=== PATIENT | male | born 1980 | race Caucasian/White ===

== ENCOUNTER 2018-05-09 16:43 | Emergency (ER) | payer MEDICAID ==
--- NOTE | 2018-05-09 17:38 | ED ---
Shortness of Breath - HPI Summary HPI Summary: This patient is a 38 year old M presenting to [facility] with a chief complaint of SOB since this AM. He endorses he was recently dxd with a heart murmur, and that his SOB is more than baseline. He also endorses fatigue and lethargy; he fell asleep while on a bench right after sitting down. In addition, pt endorses left foot edema. - History of Current Complaint Chief Complaint: EDShortnessOfBreath Time Seen by Provider: 05/09/18 16:49 Hx Obtained From: Patient Onset/Duration: Sudden Onset, Lasting Hours, Still Present Timing: Constant Current Severity: Moderate Dyspnea At: Rest Aggrevating Factors: Nothing Alleviating Factors: Nothing Associated Signs & Symptoms: Edema Related History: Obesity - Allergy/Home Medications Allergies/Adverse Reactions: Allergies Allergy/AdvReac Type Severity Reaction Status Date / Time No Known Allergies Allergy Verified 05/09/18 16:55 Home Medications: Home Medications NK [No Home Medications Reported] 05/09/18 [History Confirmed 05/09/18] PMH/Surg Hx/FS Hx/Imm Hx Endocrine/Hematology History: Denies: Hx Sickle Cell Disease Cardiovascular History: Denies: Hx Pacemaker/ICD Respiratory History: Denies: Hx Lung Cancer GI History: Denies: Hx Ileostomy History: Denies: Hx Dialysis Sensory History: Reports: Hx Contacts or Glasses Denies: Hx Legally Blind, Hx Deafness Opthamlomology History: Reports: Hx Contacts or Glasses Denies: Hx Legally Blind EENT History: Denies: Hx Deafness Neurological History: Denies: Hx Dementia Psychiatric History: Denies: Hx Autism, Hx Schizophrenia Infectious Disease History: No Infectious Disease History: Denies: Traveled Outside the [place] in Last 30 Days - Family History Known Family History: Negative: Blood Disorder - Social History Occupation: Unemployed Lives: Alone - homeless Alcohol Use: Rare Substance Use Type: Reports: None Smoking Status (MU): Never Smoked Tobacco Review of Systems Positive: Fatigue, Other - lethargy. Negative: Fever Positive: Shortness Of Breath Positive: no symptoms reported Positive: Edema Positive: Rash - bilateral flanks All Other Systems Reviewed And Are Negative: Yes Physical Exam - Summary Physical Exam Summary: Appearance: The patient is well-nourished in no acute distress and in no acute pain. Skin: The skin is warm and dry and skin color reflects adequate perfusion. Chronic bilateral flank skin discoloration. HEENT: The head is normocephalic and atraumatic. The pupils are equal and reactive. The conjunctivae are clear and without drainage. Nares are patent and without drainage. Mouth reveals moist mucous membranes and the throat is without erythema and exudate. The external ears are intact. The ear canals are patent and without drainage. The tympanic membranes are intact. Neck: The neck is supple with full range of motion and non-tender. There are no carotid bruits. There is no neck vein distension. Respiratory: Chest is non-tender. Lungs are clear to auscultation and breath sounds are symmetrical and equal. Cardiovascular: Heart is regular rate and rhythm. There is no rub auscultated. There is a soft systolic ejection murmur auscultated. There is mild bilateral peripheral edema, left worse than right, and pulses are symmetrical and equal. Abdomen: The abdomen is soft and non-tender. There are normal bowel sounds heard in all four quadrants and there is no organomegaly palpated. Musculoskeletal: There is no back tenderness noted. Extremities are non-tender with full range of motion. There is good capillary refill. There is mild bilateral peripheral edema, left worse than right, or calf tenderness elicited. Neurological: Patient is alert and oriented to person, place and time. The patient has symmetrical motor strength in all four extremities. Cranial nerves are grossly intact. Deep tendon reflexes are symmetrical and equal in all four extremities. Psychiatric: The patient has an appropriate affect and does not exhibit any anxiety or depression. Rectal: brown stool on the glove, non-tender. Triage Information Reviewed: Yes Vital Signs On Initial Exam: Initial Vitals Temp Pulse Resp BP Pulse Ox 97.9 F 83 18 127/74 99 05/09/18 16:52 05/09/18 16:52 05/09/18 16:52 05/09/18 16:52 05/09/18 16:52 Vital Signs Reviewed: Yes Diagnostics - Vital Signs Vital Signs Temp Pulse Resp BP Pulse Ox 05/09/18 17:00 95 100 05/09/18 16:59 89 127/76 100 05/09/18 16:58 83 100 05/09/18 16:52 97.9 F 83 18 127/74 99 - Laboratory Result Diagrams: 05/09/18 17:51 05/09/18 17:51 Lab Statement: Any lab studies that have been ordered have been reviewed, and results considered in the medical decision making process. - Radiology CXR Xray Interpretation: No Acute Changes Radiology Interpretation Completed By: Radiologist - No radiographic evidence for acute cardiopulmonary disease. Dr. Dillon has reviewed this report. - EKG 1739 Cardiac Rate: NL - 88 EKG Rhythm: Sinus Rhythm ST Segment: Normal Ectopy: None EKG Interpretation: No STEMI Re-Evaluation - Re-Evaluation First Eval Re-Evaluation Time: 21:40 Change: Unchanged Comment: discussed discharge, dx. Course/Dx - Course Course Of Treatment: Mr. Felipe presented complaining of shortness of breath all day today with exertion. He also complains of swelling of his legs left worse than the right that's been going on for several days to weeks. He is homeless and carries his possessions around with him. He also complains of a heart murmur which I am not certain I can hear. He does have peripheral edema. His workup reveals a fairly significant anemia with his hemoglobin of 8.3. In this institution although he is symptomatic with a hemoglobin above 8 I cannot transfuse him. I do think he needs close follow-up and I'm referring him to [facility]. Rectal exam was negative for occult blood. I'm not sure of the source of his anemia although it is microcytic. It's possible that he has been having some GI bleed intermittently. He agrees to follow-up. - Diagnoses Provider Diagnoses: Anemia Discharge - Sign-Out/Discharge Documenting (check all that apply): Patient Departure - Discharge Plan Condition: Stable Disposition: HOME Patient Education Materials: Anemia (ED) Referrals: [facility] [Outside] - 2 Days (this week) Additional Instructions: Please return to the emergency department for any new or worsening symptoms. - Billing Disposition and Condition Condition: STABLE Disposition: Home - Attestation Statements Document Initiated by Kirsten: Yes Documenting Scribe: Oliver Arreola Provider For Whom Kirsten is Documenting (Include Credential): Dr. Cam Dillon MD Scribe Attestation: Oliver Mcintosh scribed for Dr. Cam Dillon MD on 05/09/18 at 2213. Scribe Documentation Reviewed: Yes Provider Attestation: The documentation as recorded by the Oliver merchant accurately reflects the service I personally performed and the decisions made by me, Dr. Cam Dillon MD
[2018-05-09 18:02] LABS: Hematocrit 28 % (42-52); Hemoglobin 8.3 g/dl (14.0-18.0); Mean Corpuscular HGB Conc 29 g/dl (31-36); Mean Corpuscular Hemoglobin 18 pg (27-31); Mean Corpuscular Volume 60 fL (80-94); Mean Platelet Volume 8.4 um3 (7.4-10.4); Platelet Count 340 10^3/ul (150-450); Red Cell Distribution Width 19 % (10.5-15)
[2018-05-09 18:07] LABS: INR 0.99 (0.77-1.02)
--- NOTE | 2018-05-09 18:15 | RAD ---
INDICATION: Lightheadedness and shortness of breath. COMPARISON: None TECHNIQUE: PA and lateral views of the chest were obtained. FINDINGS: The heart and mediastinum are normal in size and contour. The lungs are grossly clear. There is no evidence of large pleural effusion. Visualized bones are normal for the patient's age. There is no radiographic evidence of free air beneath the diaphragm IMPRESSION: No radiographic evidence of acute cardiopulmonary disease.
[2018-05-09 18:17] LABS: EGFR Non-African American 102.3 (>60)
[2018-05-09 18:46] LABS: ABS Basophils 0.1 10^3/ul (0-0.2); ABS Eosinophils 0.2 10^3/ul (0-0.6); ABS Lymphocytes 1.1 10^3/ul (1.0-4.8); ABS Monocytes 0.9 10^3/ul (0-0.8); ABS Neutrophils 8.7 10^3/ul (1.5-7.7); ABS Nucleated RBC 0 10^3/ul; Eosinophil % 1.7 % (0-6); Lymphocyte % 10.1 % (25-47); Nucleated Red Blood Cells % 0.1; Tear Drop Cells 1+
[2018-05-09] MEDS ORDERED: NS 0.9% 1000 ML* 1,000 ML IV ONE (20:22)
[2018-05-09 22:12] VITALS: BP 112/76
== END 2018-05-09 22:11 | disposition home or self-care (01) ==
LOC: ED 16:43
DX: D64.9 Anemia, unspecified (principal); R06.02 Shortness of breath; R53.83 Other fatigue; R60.0 Localized edema
CPT/HCPCS: 36415; 71046; 80053; 82272; 83605; 83880; 84484; 85025; 85060; 85379; 85610; 86140; 93005; 99284